=== PATIENT | male | born 1940 | race Caucasian/White ===

== ENCOUNTER 2017-12-05 10:14 | Emergency (ER) | payer OTHER, MEDICARE, BC ==
[~2017-12-05] VITALS: Ht 170.2 cm; Wt 138.0 kg
[~2017-12-05 10:14] MED LIST: ALLO300 PO; ASPI325T PO; B COTAB3 PO; CIAL20TA PO; D32000CA PO; HYDR-3533 PO; HYZA100T6 PO; LANTUSP SQ; LIPI40TA PO; MEDR4PAK3 PO; NOVOLOGP2 SQ; PROT40TA PO; SYNT88TA PO; TOPR100T15 PO; ULTR50TA PO
[2017-12-05 10:21] VITALS: BP 154/69; PULSE 86; RESP 18; TEMP 98.1; O2SAT 96
--- NOTE | 2017-12-05 10:40 | PD ---
HPI Chief Complaint: Dizziness Time Seen by Provider: 10:32 Travel History International Travel<30 days: No Contact w/Intl Traveler<30days: No Traveled to known affect area: No History of Present Illness HPI 77-year-old male came to the emergency room with history of dizziness and lightheadedness that is progressively worsening for past 2 weeks. Patient describes the dizziness as an out of body experience and says it's hard for him to describe. No history of fall or syncopal episode. He does have history of diabetes and this morning when he felt dizzy and lightheaded again he took 2 of her sugar pills. He went to see his primary care [facility] and when this was mentioned they wanted him to come to the emergency room and called ambulance. Patient says currently living here he is still little dizzy. No aggravating or relieving factors identified. Vital signs are stable. No history of chest pain. Yesterday he had some headache in the back of his head. That has gone since. PFSH Past Medical History Narrative Medical List of his past medical, surgical, social and family history is reviewed from the nursing note. Hx Anticoagulant Therapy: Yes (asa) Autoimmune Disease: No Cancer: No Cardiovascular Problems: Yes High Cholesterol: Yes Chest Pain: No Congestive Heart Failure: No Diabetes: Yes Diminished Hearing: No Endocrine: Yes GERD: Yes Gout: Yes Genitourinary: No Hepatitis: No Hiatal Hernia: No Hypertension: Yes Immune Disorder: No Kidney Stones: Yes Musculoskeletal: Yes (mild arthritis in the left hand) Neurologic: No Psychiatric: No Reproductive: No Respiratory: No Immunizations Current: Yes Renal Failure: Yes (STG 3) Thyroid Disease: No Past Surgical History Abdominal Surgery: Yes (lap cholecystectomy) AICD: No Body Medical Devices: right wrist hardware Cardiac Surgery: No Cholecystectomy: Yes Ear Surgery: No Endocrine Surgery: No Eye Surgery: No Genitourinary Surgery: No Gynecologic Surgery: No Joint Replacement: No Oral Surgery: Yes (tonsillectomy) Pacemaker: No Thoracic Surgery: No Tonsillectomy: Yes Other Surgery: Yes (r wrist) Social History Alcohol Use: Yes Tobacco Use: Yes (CIGAR COUPLE TIMES A WEEK) Substance Use: No Allergies-Medications (Allergen,Severity, Reaction): Coded Allergies: No Known Allergies (Verified Adverse Reaction, Unknown, 12/05/17) Comments No known drug allergies. Reported Meds & Prescriptions Reported Meds & Active Scripts Active Meclizine (Meclizine HCl) 25 Mg Tab 25 Mg PO TID PRN Reported Novolog Inj (Insulin Aspart) 1,000 Unit/10 Ml Vial 0 SQ DIRECTED Sliding Scale as directed. Amlodipine (Amlodipine Besylate) 2.5 Mg Tab 2.5 Mg PO DAILY Aspirin 325 Mg Tab 325 Mg PO DAILY D3 (Cholecalciferol) 2,000 Unit Tab 1 Tab PO DAILY Super B Complex (Vitamin B Complex Vit C No.4) 150 Mg Tablet 1 Tab DAILY Lantus Inj (Insulin Glargine) 1,000 Unit/10 Ml Vial 72 Units SQ HS Cialis (Tadalafil) 10 Mg Tab 10 Mg PO DAILY PRN Do not exceed 1 dose/day. Losartan (Losartan Potassium) 100 Mg Tab 100 Mg PO DAILY Metoprolol Succinate ER 24 HR (Metoprolol Succinate) 50 Mg Tab 50 Mg PO DAILY Atorvastatin (Atorvastatin Calcium) 80 Mg Tab 80 Mg PO HS Allopurinol 300 Mg Tab 300 Mg PO DAILY Levothyroxine (Levothyroxine Sodium) 88 Mcg Tab 88 Mcg PO DAILY Omeprazole 20 Mg Tab 20 Mg PO DAILY Narrative Medication List of his home medications reviewed from the nursing note. Review of Systems Except as stated in HPI: all other systems reviewed are Neg Neurologic: Positive: Dizziness Physical Exam Narrative GENERAL: Awake, alert, obese, mild distress SKIN: Focused skin assessment warm/dry. HEAD: Atraumatic. Normocephalic. EYES: Pupils equal and round. No scleral icterus. No injection or drainage. No nystagmus. ENT: No nasal bleeding or discharge. Mucous membranes pink and moist. NECK: Trachea midline. No JVD. CARDIOVASCULAR: Regular rate and rhythm. No murmur appreciated. RESPIRATORY: No accessory muscle use. Clear to auscultation. Breath sounds equal bilaterally. GASTROINTESTINAL: Abdomen soft, non-tender, nondistended. Hepatic and splenic margins not palpable. MUSCULOSKELETAL: No obvious deformities. No clubbing. No cyanosis. No edema. NEUROLOGICAL: Awake and alert. No obvious cranial nerve deficits. Motor grossly within normal limits. Normal speech. PSYCHIATRIC: Appropriate mood and affect; insight and judgment normal. Data Data Last Documented VS Vital Signs Date Time Temp Pulse Resp B/P (MAP) Pulse Ox O2 Delivery O2 Flow Rate FiO2 12/05/17 14:22 97.8 15 69 130/78 (95) 98 12/05/17 13:30 Room Air Orders Orders Electrocardiogram (12/05/17 10:40) Prothrombin Time / Inr (Pt) (12/05/17 10:40) Complete Blood Count With Diff (12/05/17 10:40) Comprehensive Metabolic Panel (12/05/17 10:40) Creatine Kinase (Cpk) (12/05/17 10:40) Troponin I (12/05/17 10:40) Urinalysis - C+S If Indicated (12/05/17 10:40) Ct Brain W/O Iv Contrast(Rout) (12/05/17 10:40) Chest, Single Ap (12/05/17 10:40) Ecg Monitoring (12/05/17 10:40) Iv Access Insert/Monitor (12/05/17 10:40) Oximetry (12/05/17 10:40) Sodium Chloride 0.9% Flush (Ns Flush) (12/05/17 10:45) Meclizine (Antivert) (12/05/17 10:45) Sodium Chlor 0.9% 1000 Ml Inj (Ns 1000 M (12/05/17 11:45) Lorazepam (Ativan) (12/05/17 12:00) Mri Brain W/O Contrast (12/05/17 ) Urine Culture (12/05/17 13:00) Ed Discharge Order (12/05/17 14:19) Labs Laboratory Tests Test 12/05/17 10:55 12/05/17 11:45 12/05/17 13:00 White Blood Count 13.8 TH/MM3 Red Blood Count 4.88 MIL/MM3 Hemoglobin 14.5 GM/DL Hematocrit 43.9 % Mean Corpuscular Volume 90.0 FL Mean Corpuscular Hemoglobin 29.7 PG Mean Corpuscular Hemoglobin Concent 33.0 % Red Cell Distribution Width 14.5 % Platelet Count 240 TH/MM3 Mean Platelet Volume 9.1 FL Neutrophils (%) (Auto) 80.9 % Lymphocytes (%) (Auto) 11.0 % Monocytes (%) (Auto) 6.6 % Eosinophils (%) (Auto) 0.6 % Basophils (%) (Auto) 0.9 % Neutrophils # (Auto) 11.2 TH/MM3 Lymphocytes # (Auto) 1.5 TH/MM3 Monocytes # (Auto) 0.9 TH/MM3 Eosinophils # (Auto) 0.1 TH/MM3 Basophils # (Auto) 0.1 TH/MM3 CBC Comment DIFF FINAL Differential Comment Blood Urea Nitrogen 26 MG/DL Creatinine 1.98 MG/DL Random Glucose 134 MG/DL Total Protein 7.2 GM/DL Albumin 2.9 GM/DL Calcium Level 8.2 MG/DL Alkaline Phosphatase 162 U/L Aspartate Amino Transf (AST/SGOT) 24 U/L Alanine Aminotransferase (ALT/SGPT) 23 U/L Total Bilirubin 1.2 MG/DL Sodium Level 139 MEQ/L Potassium Level 4.1 MEQ/L Chloride Level 106 MEQ/L Carbon Dioxide Level 24.1 MEQ/L Anion Gap 9 MEQ/L Estimat Glomerular Filtration Rate 33 ML/MIN Total Creatine Kinase 102 U/L Troponin I LESS THAN 0.02 NG/ML Prothrombin Time 11.5 SEC Prothromb Time International Ratio 1.1 RATIO Urine Color YELLOW Urine Turbidity CLEAR Urine pH 5.5 Urine Specific [place] 1.023 Urine Protein 30 mg/dL Urine Glucose (UA) NEG mg/dL Urine Ketones NEG mg/dL Urine Occult Blood NEG Urine Nitrite NEG Urine Bilirubin NEG Urine Urobilinogen 2.0 MG/DL Urine Leukocyte Esterase NEG Urine RBC LESS THAN 1 /hpf Urine WBC 1 /hpf Urine Squamous Epithelial Cells <1 /hpf Urine Bacteria RARE /hpf Urine Hyaline Casts 14 /lpf Urine Mucus FEW /lpf Microscopic Urinalysis Comment CATH-CULTURE IND MDM Medical Decision Making Medical Screen Exam Complete: Yes Emergency Medical Condition: Yes Medical Record Reviewed: Yes Interpretation(s) Twelve-lead EKG was reviewed by me. Normal sinus rhythm, right axis deviation, right bundle branch block. Heart rate of 84 bpm. Differential Diagnosis CVA, BPV, electrolyte abnormality Narrative Course 1:22 PM blood test results suggestive of some dehydration. Patient was given 1 L of IV fluid bolus. Head CT was negative. At ordered an MRI with and without contrast which is negative as well. I am waiting for the UA. If that's negative patient will be ambulated and if he does okay he'll be discharged home. He was given a dose of meclizine here. 1:58 PM I reassessed the patient and he says that since getting the fluid he is feeling better. He ambulated well as well. If the UA is negative patient will be discharged home. Procedures EKG Prior to Arrival: No Diagnosis Primary Impression: Dehydration Additional Impression: Dizziness Referrals: Primary Care Physician 3 days Additional Instructions: Please return to the ER if condition worsens or any other new concerns. He should not be driving until your symptoms of dizziness completely subsided. Take the medication as per the prescription direction. Follow-up with your primary care in couple days. Drink lots of fluid. Med/Other Pt SpecificInfo: Prescription(s) given Scripts Meclizine (Meclizine) 25 Mg Tab 25 MG PO TID Y for VERTIGO, #12 TAB 0 Refills Prov: Smiley Lin MD 12/05/17 Disposition: 01 DISCHARGE HOME Condition: Stable Smiley Lin MD Dec 05, 2017 10:40
[2017-12-05 10:42] VITALS: RESP 18; O2SAT 98
[2017-12-05] MEDS ORDERED: MECLIZINE HCL 25 MG TAB PO ONE (10:45)
[2017-12-05] MEDS ORDERED: SODIUM CHLORIDE 0.9% FLUSH 10 ML FLUSH IVF PRN (10:45)
[2017-12-05] MEDS ORDERED: LANTUS2P SQ (10:46)
[2017-12-05] MEDS ORDERED: AMLO2.5T PO (10:46)
[2017-12-05] MEDS ORDERED: NOVOLOGP2 SQ (10:46)
[2017-12-05] MEDS ORDERED: D32000TA PO (10:46)
[2017-12-05] MEDS ORDERED: OMEP20TA93 PO (10:46)
[2017-12-05] MEDS ORDERED: VITA150T (10:46)
[2017-12-05] MEDS ORDERED: ASPI-183 PO (10:46)
[2017-12-05] MEDS ORDERED: CIAL10TA PO (10:46)
[2017-12-05] MEDS ORDERED: ALLO300T2 PO (10:46)
[2017-12-05] MEDS ORDERED: LEVO88TA2 PO (10:46)
[2017-12-05] MEDS ORDERED: METO1TAB9 PO (10:46)
[2017-12-05] MEDS ORDERED: ATOR80TA45 PO (10:46)
[2017-12-05] MEDS ORDERED: LOSA100T PO (10:46)
[2017-12-05 11:09] LABS: AUTOMATED NEUTROPHIL # 11.2 TH/MM3 (1.8-7.7); BASOPHIL # 0.1 TH/MM3 (0-0.2); BASOPHIL % 0.9 % (0.0-2.0); EOSINOPHIL # 0.1 TH/MM3 (0-0.4); EOSINOPHIL % 0.6 % (0.0-4.0); HEMATOCRIT 43.9 % (39.0-51.0); HEMOGLOBIN 14.5 GM/DL (13.0-17.0); LYMPHOCYTE # 1.5 TH/MM3 (1.0-4.8); MEAN CORPUSCULAR HEMOGLOBIN 29.7 PG (27.0-34.0); MEAN PLATELET VOLUME 9.1 FL (7.0-11.0); MONO % 6.6 % (0.0-8.0); MONOCYTE # 0.9 TH/MM3 (0-0.9); NEUT % 80.9 % (16.0-70.0); PLATELET COUNT 240 TH/MM3 (150-450); RED BLOOD COUNT 4.88 MIL/MM3 (4.50-5.90); RED CELL DISTRIBUTION WIDTH 14.5 % (11.6-17.2); WHITE BLOOD COUNT 13.8 TH/MM3 (4.0-11.0)
--- NOTE | 2017-12-05 11:14 | RADRPT ---
EXAM DATE/TIME: 12/05/2017 11:00 [facility] COMPARISON: CT BRAIN W/O CONTRAST, February 16, 2011, 11:18. INDICATIONS : General weakness, dizziness. RADIATION DOSE: 36.66 CTDIvol (mGy) MEDICAL HISTORY : Cardiovascular disease. Hypertension. Stage 3 kidney disease, syncope, Diabetes SURGICAL HISTORY : None. ENCOUNTER: Initial ACUITY: 2 days PAIN SCALE: 0/10 LOCATION: cranial TECHNIQUE: Multiple contiguous axial images were obtained of the head. Using automated exposure control and adj ustment of the mA and/or kV according to patient size, radiation dose was kept as low as reasonably a chievable to obtain optimal diagnostic quality images. DICOM format image data is available electro nically for review and comparison. FINDINGS: CEREBRUM: The ventricles are normal for age. No evidence of midline shift, mass lesion, hemorrhage or acute in farction. No extra-axial fluid collections are seen. POSTERIOR FOSSA: The cerebellum and brainstem are intact. The 4th ventricle is midline. The cerebellopontine angle i s unremarkable. EXTRACRANIAL: The visualized portion of the orbits is intact. SKULL: The calvaria is intact. No evidence of skull fracture. CONCLUSION: No acute disease. Glen Isidro Jr., MD on December 05, 2017 at 11:09 Board Certified Radiologist. This report was verified electronically.
--- NOTE | 2017-12-05 11:29 | RADRPT ---
EXAM DATE/TIME: 12/05/2017 11:11 [facility] COMPARISON: CT ABDOMEN & PELVIS W/O CONTRAST, February 29, 2016, 3:42. INDICATIONS : Weakness, dizziness, short of breath and headache. MEDICAL HISTORY : Diabetes mellitus type II. Hypertension SURGICAL HISTORY : None. ENCOUNTER: Initial ACUITY: 2 weeks PAIN SCORE: 0/10 LOCATION: Bilateral chest FINDINGS: A single view of the chest demonstrates the lungs to be symmetrically aerated without evidence of mas s, infiltrate or effusion. The cardiomediastinal contours are unremarkable. Osseous structures are intact. Elevation right hemidiaphragm again noted. CONCLUSION: No acute disease. Bhupinder George MD on December 05, 2017 at 11:25 Board Certified Radiologist. This report was verified electronically.
[2017-12-05 11:30] LABS: ALBUMIN 2.9 GM/DL (3.4-5.0); ALT (GPT) 23 U/L (12-78); AST (GOT) 24 U/L (15-37); BICARBONATE 24.1 MEQ/L (21.0-32.0); BLOOD UREA NITROGEN 26 MG/DL (7-18); CALCIUM 8.2 MG/DL (8.5-10.1); CHLORIDE 106 MEQ/L (98-107); CREATININE 1.98 MG/DL (0.60-1.30); GLOMERULAR FILTRATION RATE 33 ML/MIN (>89); GLUCOSE,RANDOM 134 MG/DL (74-106); SODIUM (NA) 139 MEQ/L (136-145)
[2017-12-05 11:32] VITALS: BP 127/66; PULSE 89; RESP 18; O2SAT 98
[2017-12-05 11:33] LABS: ALKALINE PHOSPHATASE 162 U/L (45-117); TOTAL BILIRUBIN ADULT 1.2 MG/DL (0.2-1.0); TOTAL PROTEIN 7.2 GM/DL (6.4-8.2); TROPONIN I LESS THAN 0.02 NG/ML (0.02-0.05)
[2017-12-05] MEDS ORDERED: SODIUM CHLOR 0.9% 1000 ML INJ 1,000 ML IV ONE (11:45)
[2017-12-05] MEDS ORDERED: LORazepam 1 MG TAB PO ONE (12:00)
[2017-12-05 12:02] LABS: INTERNATIONAL NORMALIZED RATIO 1.1 RATIO; PROTHROMBIN TIME - PATIENT 11.5 SEC (9.8-11.6)
--- NOTE | 2017-12-05 13:07 | RADRPT ---
EXAM DATE/TIME: 12/05/2017 12:30 [facility] COMPARISON: CT BRAIN W/O CONTRAST, December 05, 2017, 11:00. INDICATIONS : Dizziness. Generalized weakness. MEDICAL HISTORY : Hypertension. Diabetes mellitus type 2. CKD SURGICAL HISTORY : Cholecystectomy. Rt wrist ORIF ENCOUNTER: Initial ACUITY: 2 day PAIN SCORE: 0/10 LOCATION: cranial TECHNIQUE: Multiplanar, multisequence MRI of the brain was performed without contrast. FINDINGS: CEREBRUM: There is mild generalized atrophy. Ventricles are normal. No evidence of midline shift, mass lesion, hemorrhage or acute infarction. No extraaxial fluid collections are seen. The pituitary gland and suprasellar cistern are normal in configuration. WHITE MATTER: There is mild periventricular and subcortical white matter signal change. POSTERIOR FOSSA: The cerebellum and brainstem are intact. The 4th ventricle is midline. The cerebellopontine angle is unremarkable. The cerebellar tonsils are normal in position. DIFFUSION IMAGING: No focal areas of restricted diffusion are seen. No evidence of acute infarction. EXTRACRANIAL: The visualized portions of the orbits and paranasal sinuses are unremarkable. CONCLUSION: 1. No acute intracranial abnormality is identified. 2. Chronic changes include mild generalized atrophy and mild chronic periventricular and subcortical white matter signal change. Iftikhar Rudd MD on December 05, 2017 at 13:01 Board Certified Radiologist. This report was verified electronically.
[2017-12-05 13:30] VITALS: BP 148/65; PULSE 89; RESP 16; TEMP 97.8; O2SAT 98
[2017-12-05 14:01] LABS: BACTERIA, URINE RARE /hpf; BILIRUBIN, URINE NEG (NEG); BLOOD, URINE NEG (NEG); GLUCOSE,URINE NEG (NEG); HYALINE CAST, URINE 14 /lpf (RARE); KETONE, URINE NEG (NEG); MUCUS URINE FEW /lpf (OCC); NITRITE,URINE NEG (NEG); PH, URINE 5.5 (5.0-8.5); SQUAMOUS EPITHELIAL CELL URINE <1 /hpf (0-5); URINE COLOR YELLOW (YELLW/STRAW); URINE LEUKOCYTE ESTERASE NEG (NEG)
[2017-12-05] MEDS ORDERED: MECL-62 PO (14:01)
[2017-12-05 14:22] VITALS: BP 130/78; TEMP 97.8
--- NOTE | 2017-12-06 00:13 | EKG ---
Date Performed: 12/05/2017 Time Performed: 10:26:48 PTAGE: 77 years EKG: Sinus rhythm RIGHT BUNDLE BRANCH BLOCK ABNORMAL ECG Since the prior tracing, there has been no significant change DOCTOR: Alcides Medel Interpretating Date/Time 12/06/2017 00:12:47
== END 2017-12-05 14:35 | disposition home or self-care (01) ==
LOC: NEPC 10:14
DX: E86.0 Dehydration (principal); R42 Dizziness and giddiness; R94.31 Abnormal electrocardiogram [ECG] [EKG]; R82.90 Unspecified abnormal findings in urine; I12.9 Hypertensive chronic kidney disease with stage 1 through stage 4 chronic kidney disease, or unspecified chronic kidney disease; E11.9 Type 2 diabetes mellitus without complications; Z79.01 Long term (current) use of anticoagulants; Z72.0 Tobacco use
CPT/HCPCS: 70450; 70551; 71045; 80053; 81001; 82550; 84484; 85025; 85610; 87086; 93005; 96360; 99285; J7030

== ENCOUNTER 2018-09-11 07:00 | Inpatient (IN) ==
[2018-09-11] MEDS ORDERED: Metoprolol Tartrate 25 MG Tablet PO ONE (08:34)
[2018-09-11] MEDS ORDERED: Chlorhexidine Gluconate 2% 1 Pack (2 Cloths) TOPICAL ONE (08:34)
[2018-09-11] MEDS ORDERED: Chlorhexidine 4% Topical 120 APPLIC/120 ML Bottle TOPICAL SCH (08:45)
[2018-09-11] MEDS ORDERED: Sodium Chlor 0.9% Inj 80 ML, Bupivacaine Liposo PF 1.3% Inj 20 ML P-ARTICULR SCH ×2 (09:00)
[2018-09-11] MEDS ORDERED: Sodium Chlor 0.9% Inj 500 ML IV.SIG SCH (09:00)
[2018-09-11] MEDS ORDERED: ceFAZolin Inj 3,000 MG in Sodium Chlor 0.9% Inj 100 ML IV.SIG SCH (09:00)
[2018-09-11] MEDS ORDERED: Propofol Inj 500 MG/50 ML Vial ONE (09:38)
[2018-09-11] MEDS ORDERED: fentaNYL Citrate Inj 100 MCG/2 ML Ampul ONE (09:38)
[2018-09-11] MEDS ORDERED: Famotidine PF Inj 20 MG/2 ML Vial ONE (09:38)
[2018-09-11] MEDS ORDERED: Ketamine Inj 50 MG/5 ML Syringe IV.PUSH ONE (09:39)
[2018-09-11] MEDS ORDERED: CEFAZOLIN IV.SIG ONE (09:52)
[2018-09-11] MEDS ORDERED: SODIUM CHLOR 0.9% IV.SIG SCH (10:00)
[2018-09-11] MEDS ORDERED: TRANEXAMIC ACID IV.SIG SCH (10:00)
[2018-09-11] MEDS ORDERED: Bisacodyl 10 MG Supp RECTAL PRN (10:03)
[2018-09-11] MEDS ORDERED: Tranexamic Acid Inj 0 MG in Sodium Chlor 0.9% Inj 100 ML IV.SIG ONE (10:03)
[2018-09-11] MEDS ORDERED: Zolpidem Tartrate 5 MG Tablet PO PRN (10:03)
[2018-09-11] MEDS ORDERED: Post-op Orders (for Pharmacy) OTHER STA (10:03)
[2018-09-11] MEDS ORDERED: Morphine Inj 4 MG/ML Vial IV.PUSH PRN (10:03)
[2018-09-11] MEDS ORDERED: Aluminum/Magnesium/Simethacone Susp 30 ML UDC PO PRN (10:03)
[2018-09-11] MEDS ORDERED: Acetaminophen 325 MG Tablet PO PRN (10:03)
--- NOTE | 2018-09-11 10:06 | P.DCO ---
- Physical Therapy Physical Therapy: Gait training Knee: Total knee, Protocol: Left, Gait training, Full weight bearing Left Lower Extremity Weight Bearing: Weight bearing as tolerated Left Lower Extremity Range of Motion: Active ROM (Active, active assisted, passive range of motion. Range of motion was 0 degrees extension to 125 degrees of flexion.) - Nursing Nursing: Dressing changes Dressing changes: Daily dressing change, Coverderm/Primapore Additional instructions: Do not remove Dermabond Prineo (the tape that is directly on the wound). Leave the Optifoam dressing in place for 7 days. After this, daily dressing changes will be done taking care to avoid injuring or removing the Dermabond Prineo. - Certification Need for Home Health services: I have seen patient Juarez Rodrigues on 09/11/18. My clinical findings support the need for the requested home health care services because: Need for Home Health Services: Deconditioned with increased weakness, Limited ability to care for self, High risk of falls Homebound Certification: I certify that my clinical findings support that this patient is homebound because: Homebound Certification: Unsteady gait/balance, Unsafe to leave home unassisted , Unable to use public transportation
[2018-09-11] MEDS ORDERED: fentaNYL Citrate Inj 250 MCG/5 ML Ampul ONE (10:41)
--- NOTE | 2018-09-11 12:44 | P.OP ---
- Preoperative Diagnosis (1) Primary osteoarthritis of left knee - Postoperative Diagnosis (1) Primary osteoarthritis of left knee Date of procedure: 09/11/18 Procedure: Right total knee arthroplasty using [employer] Triathlon prosthesis (uncemented). Anesthesia: GETA, regional (Adductor canal block), local (Exparel) Surgeon: Boaz Lowery MD Electrician Underground: EDUARDO Pineda Estimated blood loss (mL): 250 Tourniquet time (min): 0 Pathology: none sent Operation and Findings: Indications and Findings: This 77-year-old man has had long-standing arthritis in his left knee, nonresponsive to conservative measures including anti- inflammatory agents, analgesics, activity modification and ambulatory aids. He has limited ambulation tolerance to about 30-40 yards. He leans on a cart when shopping. He has pain when ascending and descending stairs. He has rest pain that awakens him. He has had intra-articular corticosteroids as well which have not helped. Physical findings showed genu varum with tenderness in the medial compartment, crepitation on range of motion and an antalgic gait. X- rays showed osteophytes, loss of articular cartilage to [id number] in the medial compartment with subchondral sclerosis. Operative findings: There is severe osteoarthritis in the medial compartment predominantly but also on the lateral and patellofemoral compartments. There is loss of articular cartilage to [id number] with osteophytes and subchondral sclerosis. The prosthesis used was a [place] Triathlon prosthesis. The femur was a size 6, uncemented, cruciate retaining. The tibial baseplate was a size 6 Tritanium with a 9 mm, X3 polyethylene, cruciate retaining spacer. The patella was a size 38 mm asymmetric Tritanium backed. The patient was brought to the clean-air operating suite after administration of a regional anesthetic by adductor canal block. A spinal anesthetic was administered. The position was supine with a small bolster under the hip on the operative side. A pneumatic tourniquet was applied to the upper thigh. The lower extremity was prepped with alcohol, Hibiclens and ChloraPrep and draped in the usual manner with the knee draped free. An appropriate timeout procedure was carried out. An incision was made from about 3 fingerbreadths above the superior medial pole of patella down the tibial tubercle on the medial side. The incision was deepened through the subcutaneous tissue to the retinacular structures which were exposed medially and laterally. A medial retinacular incision was made from the superior medial pole of patella down the tibial tubercle and up into the quadriceps tendon, splitting it longitudinally in the medial one third. The patella was reflected. The infrapatellar fat pad was debulked. The anterior cruciate ligament was excised. Medial and lateral meniscectomies were initiated. Fenestrations were made in the distal femur and proximal tibia for intramedullary referencing guides. The distal femoral cutting guide and jig were assembled for a 5, 8 mm cut. When this was fit into position,the cutting block was stabilized with pins. The jig was removed. The distal femoral cut was completed with the oscillating saw. The sizing guide was positioned in place along Whites[place] line and the epicondylar axis and stabilized with pins. The femoral size was determined as noted above. The 4-in-1 cutting block was positioned in place. Anterior and posterior cuts were made followed by posterior and anterior chamfer cuts taking care to prevent injury to ligamentous structures. Osteophytes were trimmed from the distal femur. A bone plug was placed into the fenestration of the distal femur. The proximal tibia was exposed. The medial and lateral meniscectomies were completed. The proximal tibial cutting guide was positioned in place and stabilized with a pin for rotation. The depth of cut was verified with a stylus off the high side. The cutting block was stabilized with pins. The jig was removed. The depth of cut was verified and adjusted appropriately with the use of the spacer block. The proximal tibial cut was made with the oscillating saw taking care to prevent injury to neurovascular and ligamentous structures. Proximal tibial bone was removed. Local anesthetic was administered with Exparel in the posterior capsule. The tibial baseplate trial was positioned in place. After verifying the appropriate size, the base plate trial was positioned in place along with its spacer. The femoral component was impacted into place. The alignment was checked. The tibial baseplate was pinned in place on the tibia. Attention was directed to the patella. The patella drill guide was positioned in place for the appropriate sized patella. Patellar drilling was then carried out. The trial patella was positioned in place. The knee was taken through a range of motion which was easily 0 extension to 125 degrees with gravity and 130 degrees with pressure. The patella trial was removed. The femoral drill holes were made. The femoral trials were removed. The tibial spacer was removed. A bone plug was placed into the proximal tibia. The tibial punch was impacted through the proximal tibial punch guide. This was all removed followed by placement of the tibial drill guide. The tibial drill holes were made. The guide was removed. The cut ends of bone were cleaned with pulse lavage. The tibial baseplate was impacted into place and seated appropriately. The spacer was inserted. The the femoral component was impacted into place and seated appropriately. The patella component was seated with the patellar vice and tightened appropriately. The knee was taken through a range of motion which was comparable to the previous range of motion with excellent stability in flexion and extension and appropriate patellofemoral tracking. The remainder of the Exparel was injected throughout the knee as a local anesthetic. Drains were brought out the superior lateral aspect of the suprapatellar pouch. Wound closure commenced using 0 Vicryl interrupted [id number] sutures for the capsular and fascial structures, 2-0 Vicryl interrupted simple sutures with buried knots for the subcutaneous tissues and 4-0 Monocryl, continuous subcuticular closure for the skin. The wound was dressed with Dermabond Prineo followed by a dry sterile dressing. Sterile soft roll with a cooling pad and Bhupinder bandage from the base of the toes to mid thigh were applied. Patient was transferred from the operating room to the recovery room in satisfactory condition having tolerated procedure well. Counts were correct. Specimens: None. Estimated blood loss: 250 mL
[2018-09-11] MEDS ORDERED: Tranexamic Acid Inj 1,000 MG in Sodium Chlor 0.9% Inj 100 ML IV.SIG SCH (13:00)
[2018-09-11] MEDS ORDERED: *morphine SULFATE 4 MG/ML PERIprocedure ONLY ONE ×4 (13:17→14:33)
[2018-09-11] MEDS ORDERED: *Ondansetron Inj 4 MG/2 ML Vial PERIprocedural Use ONLY ONE (13:22)
[2018-09-11] MEDS ORDERED: *Meperidine Inj 25 MG/ML Vial PERIprocedural Use ONLY ONE (13:25)
[2018-09-11] MEDS ORDERED: Ketorolac Inj 30 MG/ML (IVP) Vial IV.PUSH SCH (14:00)
--- NOTE | 2018-09-11 14:22 | XR ---
EXAM DATE: 09/11/2018 2:16 PM EST AGE/SEX: 77 years / Male INDICATIONS: Post op left knee CLINICAL DATA: This is the patient's subsequent encounter. Patient reports that signs and symptoms h ave been present for 1 day and indicates a pain score of 10/10. MEDICAL/SURGICAL HISTORY: Non-responsive. . left knee replaced COMPARISON: No prior exams available for comparison. FINDINGS: AP and lateral views of the left knee were obtained and demonstrate the patient is status post arthro plasty. The components are intact and in normal alignment. There is anterior soft tissue swelling ove rlying artifact. There are surgical drains in place. CONCLUSION: Expected postoperative changes status post arthroplasty. Electronically signed by: Armen Candelaria MD 09/11/2018 2:21 PM EST
[2018-09-11] MEDS ORDERED: Dextrose 50% in Water 50 ML Vial IV.PUSH PRN (16:12)
--- NOTE | 2018-09-11 16:17 | P.CONIM ---
History of Present Illness Primary Care Provider: Barrera Araujo MD History of Present Illness: Mr. Rodrigues is a 77-year-old male. He is status post elective left knee arthroplastic surgery. He is having pain when seen however he says the degree of pain is improved compared to his baseline pre-existing pain. At baseline he has hypertension and diabetes. His only other complaint when seen is dysuria. He says he has an urgency to urinate but has not yet urinated. This could be urinary obstruction versus urethral irritation. Review of Systems Constitutional: No fevers, no chills no night sweats, no fatigue, no weakness Eyes: No eye pain, no blurry vision, no loss of vision ENT: No sore throat, no ear pain, no rhinorrhea Cardiovascular: No chest pain, no tachycardia, no palpitations, no shortness of breath, no syncope Respiratory: No wheezing, no cough, no shortness of breath Gastrointestinal: No abdominal pain, no black tarry stools, no bright red blood per rectum, no vomiting, no diarrhea Musculoskeletal: Left knee pain, no muscle cramps, no stiffness Integumentary: No rash, no ulcers, no drainage Neurologic: No sensory loss, no loss of motor function, no dizziness Psychiatric: No behavioral changes, no hallucinations, no suicidal ideations PMFSH - History History Provided By: Patient - Medical History Medical History: Medical History (Last Reviewed 09/11/18 @ 14:12 by Bhakti Garzon PT) Arthritis Diabetes Gout Hernia, hiatal Hx of renal calculi Hypertension Left knee pain Stage III chronic kidney disease Wears hearing aid in both ears - Surgical History Surgical History: Surgical History (Last Reviewed 09/11/18 @ 14:12 by Bhakti Garzon PT) History of open reduction and internal fixation (ORIF) procedure Hx of bilateral cataract extraction Hx of cholecystectomy Hx of tonsillectomy - Family History Family History: Family History (Last Updated 09/11/18 @ 16:13 by Ozzy Gomez MD) Other Osteoarthritis - Tobacco History Second Hand Smoke Exposure: No Tobacco Use In Past 30 Days: No Smoking Status: Former smoker - Alcohol History How Often Do You Have a Drink Containing Alcohol: 2 to 4 times a month - Substance Use History Substance History: No History of Abuse - Travel History Recent Travel in the [place] Within the Last 8 Weeks: No Recent Travel Out of the Country Within the Last 8 Weeks: No Medications and Allergies Active Medications: Active Medications Acetaminophen (Tylenol) 650 mg PO Q6H PRN PRN Reason: Pain Less Than 3 On Scale Hydrocodone Bitart/Acetaminophen ([place] 7.5/325) 1 tab PO Q4H PRN PRN Reason: PAIN SCALE 4 TO 6 MODERATE Hydrocodone Bitart/Acetaminophen ([place] 7.5/325) 2 tab PO Q6H PRN PRN Reason: PAIN SCALE 7 TO 10 SEVERE Last Admin: 09/11/18 15:47 Dose: 2 tab Al Hydrox/Mg Hydrox/Simethicone (Mag-Al Plus Susp Liq) 30 ml PO Q6H PRN PRN Reason: INDIGESTION Al Hydroxide/Mg Hydroxide (Milk Of Magnesia Liq) 30 ml PO BID PRN PRN Reason: Mild Constipation Allopurinol (Zyloprim) 300 mg PO DAILY [facility] Amlodipine Besylate (Norvasc) 2.5 mg PO DAILY [facility] Aspirin (Aspirin) 325 mg PO DAILY [facility] Atorvastatin Calcium (Lipitor) 80 mg PO DAILY [facility] Bisacodyl (Dulcolax Supp) 10 mg RECTAL DAILY PRN PRN Reason: SEVERE CONSITIPATION Chlorhexidine Gluconate (Hibiclens 4% Topical) 1 applicatio TOPICAL ONCE [facility] Stop: 09/15/18 08:44 Last Admin: 09/11/18 08:45 Dose: 1 applicatio Sodium Chloride 80 ml/ (Bupivacaine Liposome 20 ml) 0 ml P-ARTICULR ONCE [facility] Last Admin: 09/11/18 10:43 Dose: 1.3 bag Diphenhydramine HCl (Benadryl) 25 mg PO Q6H PRN PRN Reason: ITCHING Cefazolin Sodium 3,000 mg/ (Sodium Chloride) 130 mls @ 200 mls/hr IV.SIG PRICER [facility] Stop: 09/15/18 08:59 Last Admin: 09/11/18 10:57 Dose: Not Given Cefazolin Sodium/Dextrose (Ancef 1 Gm Premix Inj) 1 gm in 50 mls @ 100 mls/hr IV.SIG Q6H [facility] Stop: 09/12/18 04:29 Lactated Ringer's (Lr 1000 Ml Inj) 1,000 mls @ 80 mls/hr IV.CONT .[id number] [facility] Last Infusion: 09/11/18 11:15 Dose: Infused Tranexamic Acid / Sodium (Chloride) 100 mls @ 200 mls/hr IV.SIG ONCE ONE Stop: 09/11/18 10:32 Insulin Aspart (Novolog Insulin Correctional Sugar Inj) 24 unit SQ QAM [facility] Insulin Aspart (Novolog Inj) 18 units SQ AC [facility] Insulin Detemir (Levemir Inj) 64 unit SQ HS [facility] Lactulose (Lactulose Liq) 30 ml PO DAILY PRN PRN Reason: SEVERE CONSITIPATION Levothyroxine Sodium (Synthroid) 88 mcg PO DAILY@0600 [facility] Losartan Potassium (Cozaar) 100 mg PO DAILY [facility] Metoprolol Tartrate (Lopressor) 50 mg PO BID [facility] Miscellaneous Information ([facility] [place] Nursing Information) 0 each OTHER UNSCH PRN PRN Reason: SEE LABEL COMMENTS Stop: 09/12/18 13:06 Morphine Sulfate (Morphine Inj) 2 mg IV.PUSH Q3H PRN PRN Reason: BREAKTHROUGH PAIN Ondansetron HCl (Zofran Odt) 4 mg PO Q6H PRN PRN Reason: NAUSEA OR VOMITING Pantoprazole Sodium (Protonix) 20 mg PO DAILY [facility] Senna/Docusate Sodium (Radha-Colace) 1 tab PO BID [facility] Sennosides (Senokot) 17.2 mg PO BID PRN PRN Reason: Moderate Constipation Sodium Chloride (Ns Flush) 2 ml IV.FLUSH BID [facility] Sodium Chloride (Ns Flush) 2 ml IV.FLUSH PRN PRN PRN Reason: FLUSH AFTER USING IV ACCESS Vitamin B Complex/Vitamin C (Allbee C) 1 tab PO DAILY [facility] Vitamin D (Vitamin D3) 2,000 unit PO DAILY [facility] Zolpidem Tartrate (Ambien) 5 mg PO HS PRN PRN Reason: INSOMNIA Allergies Allergy/AdvReac Type Severity Reaction Status Date / Time No Known Allergies Allergy Unverified 09/11/18 08:24 Home Medications Medication Instructions Recorded Confirmed Type allopurinol 300 mg PO DAILY 08/30/18 09/11/18 History amlodipine 2.5 mg PO DAILY 08/30/18 09/11/18 History aspirin 325 mg PO DAILY 08/30/18 09/11/18 History atorvastatin 80 mg PO DAILY 08/30/18 09/11/18 History cholecalciferol (vitamin D3) 2,000 unit PO DAILY 08/30/18 09/11/18 History [Vitamin D3] insulin aspart U-100 [Novolog 18 unit SUBCUT AC 08/30/18 09/11/18 History U-100 Insulin aspart] insulin aspart U-100 [Novolog 24 unit SUBCUT QAM 08/30/18 09/11/18 History U-100 Insulin aspart] insulin glargine [Lantus U-100 68 unit SUBCUT HS 08/30/18 09/11/18 History Insulin] levothyroxine 88 mcg PO DAILY 08/30/18 09/11/18 History losartan 100 mg PO DAILY 08/30/18 09/11/18 History metoprolol tartrate 50 mg PO BID 08/30/18 09/11/18 History omeprazole 20 mg PO DAILY 08/30/18 09/11/18 History vitamin B complex [Super B-50 1 cap PO DAILY 08/30/18 09/11/18 History Complex] Exam Vital signs: Vital Signs 09/11/18 08:30 09/11/18 08:40 09/11/18 09:10 Temperature 98.3 F Pulse Rate 76 69 Respiratory Rate Blood Pressure 170/76 H Pulse Oximetry 100 100 09/11/18 13:05 09/11/18 13:15 09/11/18 13:30 Temperature 98.5 F Pulse Rate 82 82 79 Respiratory Rate 14 16 15 Blood Pressure 117/62 117/59 L 152/65 H Pulse Oximetry 100 100 100 09/11/18 13:45 09/11/18 14:00 09/11/18 14:30 Temperature Pulse Rate 78 79 83 Respiratory Rate 16 16 15 Blood Pressure 158/70 H 157/70 H 144/65 H Pulse Oximetry 97 97 100 09/11/18 15:00 Temperature 97.8 F Pulse Rate 81 Respiratory Rate 15 Blood Pressure 164/76 H Pulse Oximetry 100 Intake & Output 09/10/18 09/11/18 09/11/18 18:59 06:59 18:59 Intake Total 2062.93 / 2062.93 Output Total 250 / 250 Balance 1812.93 / 1812.93 Weight 129.3 kg Intake: IV 1262.93 / 1262.93 LR 1000 mL Inj 1,000 ML @ 80 1000 / 1000 mls/hr IV.CONT .[id number] [facility] Rx# :[id number] Cyklokapron Inj 1,293 MG In NS 112.93 / 112.93 Inj 100 ML @ 200 mls/hr IV.SIG ONCE [facility] Rx#:[id number] Ancef 1 GM Premix Inj 3 gm In 150 / 150 150 ml @ 0 mls/hr IV.SIG .STK- [facility] Rx#:[id number] Anesthesia Amount 800 / 800 Output: Estimated Blood Loss 250 / 250 Other: Weight On Admission 129.3 kg Narrative: GENERAL: NAD, A&Ox3 HEAD: Normocephalic. NECK: Supple, trachea midline. No lymphadenopathy. EYES: No scleral icterus. No injection or drainage. CARDIOVASCULAR: Regular rate and rhythm without murmurs, gallops, or rubs. RESPIRATORY: Breath sounds equal bilaterally. No accessory muscle use. GASTROINTESTINAL: Abdomen soft, non-tender, nondistended. MUSCULOSKELETAL: No cyanosis, or edema. Left knee bandaged SKIN: Warm and dry. NEURO: No focal neurological deficits. Results - Labs Labs: Laboratory Results - last 24 hr 09/11/18 09/11/18 09/11/18 08:24 08:28 13:09 POC Glucose 115 H 97 Blood Type A Positive Antibody Screen Negative - Imaging Impressions Knee X-Ray 09/11/18 10:01 CONCLUSION: Expected postoperative changes status post arthroplasty. Assessment and Plan - Plan 77-year-old male admitted secondary to elective left knee surgery Dysuria Possible urinary obstruction Continue to try to urinate Bladder scan if patient unable to urinate May need to Place Ng catheter if volume is greater than 500 mL Status post left knee arthroplastic surgery Osteoarthritis Orth O following Continue pain treatments as needed Physical therapy Follow H&H Diabetes mellitus type 2 Follow blood sugars Insulin sliding scale Diabetic diet Gout Continue allopurinol Chronic kidney disease stage III Follow renal function Avoid nephrotoxins Hypertension Continue baseline treatment Follow blood pressures Adjust treatments as needed Hiatal hernia History of renal calculi Presbycusis Follow these conditions clinically DVT prophylaxis Per discretion of surgeon
[2018-09-11] MEDS ORDERED: Insulin NovoLOG Aspart Correctional Sugar Inj SQ SCH (17:00)
[2018-09-11] MEDS: Insulin NovoLOG Aspart Correctional Sugar Inj SQ SCH ×2 (18:52→20:38)
[2018-09-11] MEDS: ceFAZolin 1 GM Premix Inj 1 GM/50 ML FROZ.PIGGY IV.SIG SCH ×2 (19:30→21:38)
[2018-09-11] MEDS: Metoprolol Tartrate 50 MG Tablet PO SCH (20:38)
[2018-09-11] MEDS: Senna/Docusate Sodium 8.6/50 MG Tablet PO SCH (20:39)
[2018-09-11] MEDS ORDERED: Insulin Detemir Inj 1,000 UNIT/10 ML Vial SQ SCH (21:00)
[2018-09-11] MEDS: Insulin Detemir Inj 1,000 UNIT/10 ML Vial SQ SCH (21:39)
[2018-09-12] MEDS: ceFAZolin 1 GM Premix Inj 1 GM/50 ML FROZ.PIGGY IV.SIG SCH (03:43)
[2018-09-12] MEDS ORDERED: Glycopyrrolate Inj 1 MG/5 ML Syringe IV.PUSH ONE (04:57)
[2018-09-12] MEDS ORDERED: Neostigmine Inj 5 MG/5 ML Syringe IV.PUSH ONE (04:57)
[2018-09-12] MEDS ORDERED: Phenylephrine/NS 1000 MCG/10ML Syringe IV.PUSH ONE (04:57)
[2018-09-12] MEDS ORDERED: Lidocaine PF 1% Inj 5 ML Syringe OTHER ONE (04:57)
[2018-09-12] MEDS: Levothyroxine 88 MCG Tablet PO SCH (05:14)
[2018-09-12 06:00] LABS: Baso % (Auto) 0.3 % (0.0-2.0); Eos # (Auto) 0.1 th/mm3 (0.0-0.4); Eos % (Auto) 0.7 % (0.0-4.0); Hemoglobin 12.2 gm/dL (13.0-17.0); Lymph # (Auto) 1.3 th/mm3 (1.0-4.8); Lymph % (Auto) 11.1 % (9.0-44.0); Mean Corpuscular HGB Conc 33.1 % (32.0-36.0); Mean Corpuscular Volume 90.7 fL (80.0-100.0); Mono # (Auto) 0.9 th/mm3 (0.0-0.9); Mono % (Auto) 8.1 % (0.0-8.0); Neut # (Auto) 9.3 th/mm3 (1.8-7.7); Neut % (Auto) 79.8 % (16.0-70.0); Platelet Count 199 th/mm3 (150-450); Red Blood Count 4.08 mil/mm3 (4.50-5.90); Red Cell Distribution Width 14.3 % (11.6-17.2); White Blood Count 11.6 th/mm3 (4.0-11.0)
[2018-09-12 06:14] LABS: Albumin 2.8 g/dL (3.4-5.0); Anion Gap 7 meq/L (5-15); Aspartate Aminotransferase 20 U/L (15-37); Blood Urea Nitrogen 21 mg/dL (7-18); Calcium 7.9 mg/dL (8.5-10.1); Carbon Dioxide 29.4 meq/L (21.0-32.0); Chloride 105 meq/L (98-107); Glomerular Filtration Rate 30 mL/min (>89); Glucose,Random 80 mg/dL (74-106); Potassium 4.6 meq/L (3.5-5.1); Sodium 141 meq/L (136-145)
[2018-09-12 06:15] LABS: Alanine Aminotransferase 25 U/L (12-78)
[2018-09-12 06:17] LABS: Alkaline Phosphatase 186 U/L (45-117); Total Protein 6.5 g/dL (6.4-8.2)
--- NOTE | 2018-09-12 07:13 | P.PNOP ---
Subjective Interval history: Postop day #1 The patient complains of pain in his knee. He indicates that the medication that he is currently getting is not quite adequate. Physical therapy reports that the ambulation distance was 3 feet due to weakness "from adductor block". The range of motion was not recorded by the physical therapist. Physical Exam Vital signs: Vital Signs 09/11/18 08:30 09/11/18 08:40 09/11/18 09:10 Temperature 98.3 F Pulse Rate 76 69 Respiratory Rate Blood Pressure 170/76 H Pulse Oximetry 100 100 09/11/18 13:05 09/11/18 13:15 09/11/18 13:30 Temperature 98.5 F Pulse Rate 82 82 79 Respiratory Rate 14 16 15 Blood Pressure 117/62 117/59 L 152/65 H Pulse Oximetry 100 100 100 09/11/18 13:45 09/11/18 14:00 09/11/18 14:30 Temperature Pulse Rate 78 79 83 Respiratory Rate 16 16 15 Blood Pressure 158/70 H 157/70 H 144/65 H Pulse Oximetry 97 97 100 09/11/18 15:00 09/11/18 16:00 09/11/18 20:00 Temperature 97.8 F 97.7 F 97.4 F L Pulse Rate 81 79 80 Respiratory Rate 15 18 18 Blood Pressure 164/76 H 151/65 H 165/72 H Pulse Oximetry 100 100 99 09/11/18 22:16 09/12/18 00:00 09/12/18 04:00 Temperature 97.6 F 98.2 F Pulse Rate 80 77 Respiratory Rate 18 18 18 Blood Pressure 175/72 H 150/71 H Pulse Oximetry 97 97 09/12/18 04:14 Temperature Pulse Rate Respiratory Rate 18 Blood Pressure Pulse Oximetry Intake & Output 09/11/18 09/12/18 09/12/18 18:59 06:59 18:59 Intake Total 2542.93 / 2542.93 390 / 390 Output Total 250 / 250 265 / 265 Balance 2292.93 / 2292.93 125 / 125 Weight 129.3 kg 132.5 kg Intake: IV 1262.93 / 1262.93 150 / 150 LR 1000 mL Inj 1,000 ML @ 80 1000 / 1000 mls/hr IV.CONT .[id number] [facility] Rx# :[id number] Cyklokapron Inj 1,293 MG In NS 112.93 / 112.93 Inj 100 ML @ 200 mls/hr IV.SIG ONCE [facility] Rx#:[id number] Ancef 1 GM Premix Inj 1 gm In 150 / 150 150 / 150 50 ml @ 100 mls/hr IV.SIG Q6H [facility] Rx#:[id number] Oral 480 / 480 240 / 240 Anesthesia Amount 800 / 800 Output: Urine 125 / 125 Estimated Blood Loss 250 / 250 Wound Drainage 140 / 140 # 1 Left Lateral Knee Hemovac 140 / 140 Other: Weight On Admission 129.3 kg Narrative: He is resting, relatively comfortably, supine in bed. The dressing is dry and intact. His neurovascular status is intact. Results - Labs CBC & Chem 7: 09/12/18 04:30 09/12/18 04:30 Laboratory Results - last 24 hr 09/11/18 09/11/18 09/11/18 08:24 08:28 13:09 WBC RBC Hgb Hct MCV MCH MCHC RDW Plt Count MPV Neut % (Auto) Lymph % (Auto) [place] % (Auto) Eos % (Auto) Baso % (Auto) Neut # (Auto) Lymph # (Auto) [place] # (Auto) Eos # (Auto) Baso # (Auto) WBC Differential Differential Comment Sodium Potassium Chloride Carbon Dioxide Anion Gap BUN Creatinine Estimated GFR POC Glucose 115 H 97 Random Glucose Calcium Total Bilirubin AST ALT Alkaline Phosphatase Total Protein Albumin Blood Type A Positive Antibody Screen Negative 09/11/18 09/12/18 09/12/18 20:33 02:34 04:30 WBC 11.6 H RBC 4.08 L Hgb 12.2 L Hct 37.0 L MCV 90.7 MCH 30.0 MCHC 33.1 RDW 14.3 Plt Count 199 MPV 9.0 Neut % (Auto) 79.8 H Lymph % (Auto) 11.1 [place] % (Auto) 8.1 H Eos % (Auto) 0.7 Baso % (Auto) 0.3 Neut # (Auto) 9.3 H Lymph # (Auto) 1.3 [place] # (Auto) 0.9 Eos # (Auto) 0.1 Baso # (Auto) 0.0 WBC Differential . Differential Comment Auto diff final Sodium Potassium Chloride Carbon Dioxide Anion Gap BUN Creatinine Estimated GFR POC Glucose 140 H 84 Random Glucose Calcium Total Bilirubin AST ALT Alkaline Phosphatase Total Protein Albumin Blood Type Antibody Screen 09/12/18 04:30 WBC RBC Hgb Hct MCV MCH MCHC RDW Plt Count MPV Neut % (Auto) Lymph % (Auto) [place] % (Auto) Eos % (Auto) Baso % (Auto) Neut # (Auto) Lymph # (Auto) [place] # (Auto) Eos # (Auto) Baso # (Auto) WBC Differential Differential Comment Sodium 141 Potassium 4.6 Chloride 105 Carbon Dioxide 29.4 Anion Gap 7 BUN 21 H Creatinine 2.18 H Estimated GFR 30 L POC Glucose Random Glucose 80 Calcium 7.9 L Total Bilirubin 0.6 AST 20 ALT 25 Alkaline Phosphatase 186 H Total Protein 6.5 Albumin 2.8 L Blood Type Antibody Screen - Imaging Impressions Knee X-Ray 09/11/18 10:01 CONCLUSION: Expected postoperative changes status post arthroplasty. - Procedures Left total knee arthroplasty using Denise Triathlon prosthesis (uncemented) on 09/11/2018. Assessment and Plan - Ortho Post Op Day # 1 - Problem List (1) Status post total left knee replacement not using cement Code(s): Z96.652 - Presence of left artificial knee joint Status: Acute Plan: Continue postop care and PT. I have explained the operative findings and procedure to him. I have explained to him the importance of working on terminal extension as well as flexion. I have explained that he needs to put his heel down first as he walks to encourage extension as he walks. - Assessment and Plan Condition: Good. Orthopedically stable. DVT prophylaxis: TEDs, aspirin, sequentials. Discharge plans: Home with home health care. An appointment was scheduled through the office. Prescriptions: [place] 10; Patient is having significant pain caused by a total knee arthroplasty which will last more than 3 days. Trial of Tylenol has not helped. I believe that it is medically necessary to treat patients pain because it is affecting patients ability to participate in postoperative rehabilitation and perform activities of daily living in a comfortable and efficient manner.
--- NOTE | 2018-09-12 07:45 | P.DS ---
Date of admission: 09/11/18 07:49 Primary care physician: Barrera Araujo MD Attending physician on discharge: Boaz Lowery Anticipated date of discharge: 09/12/18 Brief History from admission: This 77-year-old man has had long-standing arthritis in his left knee, nonresponsive to conservative measures including anti-inflammatory agents, analgesics, ambulatory aids and exercise. This interferes with his activities of daily living making it difficult for him to walk, he has pain standing from a seated position and ascending and descending stairs. He also has rest pain that awakens him at night. Physical findings showed medial laxity with tenderness in the medial compartment and crepitation on range of motion. He had an antalgic gait. Radiographic findings showed loss of articular cartilage to [id number] in the medial compartment with subchondral sclerosis and tricompartmental osteophytes. DS: Diagnosis - Discharge Diagnosis (1) Primary osteoarthritis of left knee Status: Chronic Diagnosis: Principal (2) Status post total left knee replacement not using cement Status: Acute Diagnosis: Principal (3) Obesity, Class III, BMI 40-49.9 (morbid obesity) Status: Acute Diagnosis: Secondary (4) Diabetes mellitus Status: Acute Diagnosis: Secondary DS: Medications - Discharge Medications Prescriptions: oxycodone-acetaminophen 1 tab PO Q4H PRN 7 Days #42 tab PRN Reason: Pain Scale 7 To 10 Severe DS: Summary Hospital Course: The patient was admitted as noted above. The above noted operative procedure was carried out that day. Preoperatively prophylactic antibiotics were administered Ancef according to protocol. These were continued postoperatively. The patient also received tranexamic acid to help with hemostasis according to protocol. In the postanesthesia care unit mechanical methods of DVT prophylaxis in the form of GERALDINE stockings and sequentials were initiated. Physical therapy was initiated on the day of surgery. On postoperative day #1 physical therapy continued. DVT prophylaxis with resumption of aspirin 325 mg daily was initiated at this time. The patient continued physical therapy throughout the hospitalization. The distance walked and range of motion improved throughout the hospitalization. The patient was discharged on postoperative day 3 with the disposition being to home with home health care. An appointment for follow-up was made prior to admission. - Time Spent with Patient Total time spent providing and/or coordinating discharge services: Less than 30 minutes - Quality: VTE Deep Vein Thrombosis/Pulmonary Embolism Present on Admission: No Exam Vital signs: Vital Signs 09/11/18 08:30 09/11/18 08:40 09/11/18 09:10 Temperature 98.3 F Pulse Rate 76 69 Respiratory Rate Blood Pressure 170/76 H Pulse Oximetry 100 100 09/11/18 13:05 09/11/18 13:15 09/11/18 13:30 Temperature 98.5 F Pulse Rate 82 82 79 Respiratory Rate 14 16 15 Blood Pressure 117/62 117/59 L 152/65 H Pulse Oximetry 100 100 100 09/11/18 13:45 09/11/18 14:00 09/11/18 14:30 Temperature Pulse Rate 78 79 83 Respiratory Rate 16 16 15 Blood Pressure 158/70 H 157/70 H 144/65 H Pulse Oximetry 97 97 100 09/11/18 15:00 09/11/18 16:00 09/11/18 20:00 Temperature 97.8 F 97.7 F 97.4 F L Pulse Rate 81 79 80 Respiratory Rate 15 18 18 Blood Pressure 164/76 H 151/65 H 165/72 H Pulse Oximetry 100 100 99 09/11/18 22:16 09/12/18 00:00 09/12/18 04:00 Temperature 97.6 F 98.2 F Pulse Rate 80 77 Respiratory Rate 18 18 18 Blood Pressure 175/72 H 150/71 H Pulse Oximetry 97 97 09/12/18 04:14 Temperature Pulse Rate Respiratory Rate 18 Blood Pressure Pulse Oximetry Intake & Output 09/11/18 09/12/18 09/12/18 18:59 06:59 18:59 Intake Total 2542.93 / 2542.93 390 / 390 Output Total 250 / 250 265 / 265 Balance 2292.93 / 2292.93 125 / 125 Weight 129.3 kg 132.5 kg Intake: IV 1262.93 / 1262.93 150 / 150 LR 1000 mL Inj 1,000 ML @ 80 1000 / 1000 mls/hr IV.CONT .[id number] [facility] Rx# :[id number] Cyklokapron Inj 1,293 MG In NS 112.93 / 112.93 Inj 100 ML @ 200 mls/hr IV.SIG ONCE [facility] Rx#:[id number] Ancef 1 GM Premix Inj 1 gm In 150 / 150 150 / 150 50 ml @ 100 mls/hr IV.SIG Q6H [facility] Rx#:[id number] Oral 480 / 480 240 / 240 Anesthesia Amount 800 / 800 Output: Urine 125 / 125 Estimated Blood Loss 250 / 250 Wound Drainage 140 / 140 # 1 Left Lateral Knee Hemovac 140 / 140 Other: Weight On Admission 129.3 kg Narrative: He is resting, relatively comfortably, supine in bed. The dressing is dry and intact. His neurovascular status is intact. Results Procedures completed during hospitalization: Left total knee arthroplasty using [place] Triathlon prosthesis (uncemented) on 09/11/2018. Labs on day of discharge: Labs from last 24 hours 09/12/18 09/12/18 09/12/18 04:30 04:30 02:34 WBC 11.6 H RBC 4.08 L Hgb 12.2 L Hct 37.0 L MCV 90.7 MCH 30.0 MCHC 33.1 RDW 14.3 Plt Count 199 MPV 9.0 Neut % (Auto) 79.8 H Lymph % (Auto) 11.1 [place] % (Auto) 8.1 H Eos % (Auto) 0.7 Baso % (Auto) 0.3 Neut # (Auto) 9.3 H Lymph # (Auto) 1.3 [place] # (Auto) 0.9 Eos # (Auto) 0.1 Baso # (Auto) 0.0 WBC Differential . Differential Comment Auto diff final Sodium 141 Potassium 4.6 Chloride 105 Carbon Dioxide 29.4 Anion Gap 7 BUN 21 H Creatinine 2.18 H Estimated GFR 30 L POC Glucose 84 Random Glucose 80 Calcium 7.9 L Total Bilirubin 0.6 AST 20 ALT 25 Alkaline Phosphatase 186 H Total Protein 6.5 Albumin 2.8 L Blood Type Antibody Screen 09/11/18 09/11/18 09/11/18 20:33 13:09 08:28 WBC RBC Hgb Hct MCV MCH MCHC RDW Plt Count MPV Neut % (Auto) Lymph % (Auto) [place] % (Auto) Eos % (Auto) Baso % (Auto) Neut # (Auto) Lymph # (Auto) [place] # (Auto) Eos # (Auto) Baso # (Auto) WBC Differential Differential Comment Sodium Potassium Chloride Carbon Dioxide Anion Gap BUN Creatinine Estimated GFR POC Glucose 140 H 97 Random Glucose Calcium Total Bilirubin AST ALT Alkaline Phosphatase Total Protein Albumin Blood Type A Positive Antibody Screen Negative 09/11/18 08:24 WBC RBC Hgb Hct MCV MCH MCHC RDW Plt Count MPV Neut % (Auto) Lymph % (Auto) [place] % (Auto) Eos % (Auto) Baso % (Auto) Neut # (Auto) Lymph # (Auto) [place] # (Auto) Eos # (Auto) Baso # (Auto) WBC Differential Differential Comment Sodium Potassium Chloride Carbon Dioxide Anion Gap BUN Creatinine Estimated GFR POC Glucose 115 H Random Glucose Calcium Total Bilirubin AST ALT Alkaline Phosphatase Total Protein Albumin Blood Type Antibody Screen - Impressions ITS Impressions Knee X-Ray 09/11/18 10:01 CONCLUSION: Expected postoperative changes status post arthroplasty. Discharge Plan - Discharge Disposition Patient Disposition: /Home Health Service - Discharge Condition Condition: Stable - Discharge Order Discharge Orders: Discharge Order (Routine); Ordered 09/14/18 Ordered By: Boaz Lowery - Discharge Details Anticipated Discharge Date: 09/14/18 - Physicians Team Primary Care Provider: Barrera Araujo Attending Provider: Boaz Lowery Other Providers: Ozzy Gomez MD ; [facility], ; [facility] - Rxs /Orders / Referrals /Forms Prescriptions: New oxycodone-acetaminophen 7.5-325 mg Tablet 1 tab PO Q4H PRN (Reason: Pain Scale 7 To 10 Severe) 7 Days Qty: 42 RF: 0 Continue allopurinol 300 mg Tablet 300 mg PO DAILY amlodipine 2.5 mg Tablet 2.5 mg PO DAILY aspirin 325 mg Tablet 325 mg PO DAILY atorvastatin 80 mg Tablet 80 mg PO DAILY cholecalciferol (vitamin D3) [Vitamin D3] 2,000 unit Capsule 2,000 unit PO DAILY insulin aspart U-100 [Novolog U-100 Insulin aspart] 100 unit/mL Solution 18 unit subcut AC insulin aspart U-100 [Novolog U-100 Insulin aspart] 100 unit/mL Solution 24 unit SUBCUT QAM insulin glargine [Lantus U-100 Insulin] 100 unit/mL Solution 68 unit SUBCUT HS levothyroxine 88 mcg Capsule 88 mcg PO DAILY losartan 100 mg Tablet 100 mg PO DAILY metoprolol tartrate 50 mg Tablet 50 mg PO BID omeprazole 20 mg Capsule,Delayed Release(Dr/Ec) 20 mg PO DAILY vitamin B complex [Super B-50 Complex] Capsule 1 cap PO DAILY Referrals: Boaz Lowery MD [Physician] - See Instructions Barrera Araujo MD [Primary Care Provider] - See Instructions - Discharge Instructions Patient Printed Instructions: Oxycodone/Acetaminophen (By mouth), How to Use an Incentive Spirometer (DC), How to Choose and Use a Walker (GEN), GERALDINE Hose (DC ), Knee Replacement (DC) - Post Discharge Care Plan Care Plan Goals: Discharge Care Plan Goals for Total Knee Replacement You have undergone knee replacement surgery. Your doctor replaced your painful joint with an artificial joint to relieve pain and restore movement. Here are some goals to help you heal well. Directions to Meet your Goals: 1. Activity & Exercises: * Take pain medicine as directed by your doctor. * Sit in chairs with arms. The arms make it easier for you to stand up or sit down. * Dont sit for more than 30 to 45 minutes at one time. * Nap if you are tired, but dont stay in bed all day. * Sleep with a pillow under your ankle, not your knee. Be sure to change the position of your leg during the night. * Wear the support stockings you were given in the hospital as directed by your surgeon. 2. Prevent Falls/Injury: The elias to successful recovery is movement with walking and exercising your knee as directed by your doctor. * Arrange your household to keep the items you need handy. Keep everything else out of the way. * Remove items that may cause you to fall, such as throw rugs and electrical cords. * Use nonslip bath mats, grab bars, an elevated toilet seat, and a shower chair in your bathroom * Sit on a shower stool or chair when you shower to keep from falling. * Until your balance, flexibility, and strength improve, use a cane, crutches, a walker, handrails, or someone to help you. * Keep your hands free by using a backpack, perez pack, apron, or pockets to carry things * Walk up and down stairs with support. Try one step at a time. Use the railing if possible. * Dont drive until your doctor says its OK. * Dont drive while you are taking opioid pain medicine. 3. Precautions: * Prevent infection. Any infection will need to be treated immediately. Call your doctor right away if you think you might have an infection. * Tell your dentist that you have an artificial joint and take antibiotics as prescribed before any dental work. * Tell all your healthcare providers about your artificial joint before any medical procedure. * Maintain a healthy weight. Get help to lose any extra pounds. Added body weight puts stress on the knee. * Your medications may include blood-thinning medicine to prevent blood clots or antibiotics to prevent infection-prevent any falls or cuts 4. Incision Care: * Prevent infection by washing your hands often. If an infection occurs, it will need to be treated right away. * Call your doctor right away if you think you may have an infection. Symptoms include a fever or an incision that leaks white, green, or yellow fluid. * Don't soak your incision in water until your doctor says its OK. This means no hot tubs, bathtubs, or swimming pools. * Follow your doctor's instructions for changing the dressing. * Dont rub the incision, or apply creams or lotions to it. * If you notice any redness or drainage around the bandage site, contact your surgeon's office immediately. 5. Follow-Up: Do Not miss your follow-up appointment. Keep up with all your appointments and yearly check ups When to call your doctor: Call your doctor right away if you have: Fever of 100.4F (38C) or higher, or as directed by your doctor Shaking chills Stiffness, or inability to move the knee Increased swelling in your leg Increased redness, tenderness, or swelling in or around the knee incision Drainage from the knee incision Increased knee pain Call 911: Call 911 right away if you have: Chest pain Shortness of breath Any pain or tenderness in your calf
[2018-09-12] MEDS: Aspirin 325 MG Tablet PO SCH (08:28)
[2018-09-12] MEDS: amLODIPine 5 MG Tablet PO SCH (08:28)
[2018-09-12] MEDS: Metoprolol Tartrate 50 MG Tablet PO SCH ×2 (08:28→20:35)
[2018-09-12] MEDS: Allopurinol 300 MG Tablet PO SCH (08:29)
[2018-09-12] MEDS: Pantoprazole Sodium 20 MG DR Tablet PO SCH (08:29)
[2018-09-12] MEDS: Senna/Docusate Sodium 8.6/50 MG Tablet PO SCH ×2 (08:29→20:36)
[2018-09-12] MEDS: Insulin NovoLOG Aspart Correctional Sugar Inj SQ SCH ×4 (08:36→21:00)
--- NOTE | 2018-09-12 08:44 | P.PN ---
Subjective Interval history: Follow up on patient s/p elective left TKR. Patient seen and examined. Patient complaining of postoperative left knee pain. He is asking for more pain medication. He reports sensation of incomplete bladder emptying, slow stream and small void volumes. He denies any dysuria. He denies any fever or chills. He denies any chest pain or dyspnea. He denies any N/V or abdominal pain. Physical Exam Vital signs: Vital Signs 09/11/18 09:10 09/11/18 13:05 09/11/18 13:15 Temperature 98.5 F Pulse Rate 69 82 82 Respiratory Rate 14 16 Blood Pressure 117/62 117/59 L Pulse Oximetry 100 100 100 09/11/18 13:30 09/11/18 13:45 09/11/18 14:00 Temperature Pulse Rate 79 78 79 Respiratory Rate 15 16 16 Blood Pressure 152/65 H 158/70 H 157/70 H Pulse Oximetry 100 97 97 09/11/18 14:30 09/11/18 15:00 09/11/18 16:00 Temperature 97.8 F 97.7 F Pulse Rate 83 81 79 Respiratory Rate 15 15 18 Blood Pressure 144/65 H 164/76 H 151/65 H Pulse Oximetry 100 100 100 09/11/18 20:00 09/11/18 22:16 09/12/18 00:00 Temperature 97.4 F L 97.6 F Pulse Rate 80 80 Respiratory Rate 18 18 18 Blood Pressure 165/72 H 175/72 H Pulse Oximetry 99 97 09/12/18 04:00 09/12/18 04:14 Temperature 98.2 F Pulse Rate 77 Respiratory Rate 18 18 Blood Pressure 150/71 H Pulse Oximetry 97 Intake & Output 09/11/18 09/12/18 09/12/18 18:59 06:59 18:59 Intake Total 2542.93 / 2542.93 390 / 390 Output Total 250 / 250 265 / 265 Balance 2292.93 / 2292.93 125 / 125 Weight 129.3 kg 132.5 kg Intake: IV 1262.93 / 1262.93 150 / 150 LR 1000 mL Inj 1,000 ML @ 80 1000 / 1000 mls/hr IV.CONT .[id number] [facility] Rx# :[id number] Cyklokapron Inj 1,293 MG In NS 112.93 / 112.93 Inj 100 ML @ 200 mls/hr IV.SIG ONCE [facility] Rx#:[id number] Ancef 1 GM Premix Inj 1 gm In 150 / 150 150 / 150 50 ml @ 100 mls/hr IV.SIG Q6H [facility] Rx#:[id number] Oral 480 / 480 240 / 240 Anesthesia Amount 800 / 800 Output: Urine 125 / 125 Estimated Blood Loss 250 / 250 Wound Drainage 140 / 140 # 1 Left Lateral Knee Hemovac 140 / 140 Other: Weight On Admission 129.3 kg Narrative: GENERAL: WDWN overweight male patient, INAD. Awake and alert. SKIN: Warm and dry. HEENT: Atraumatic. Normocephalic. Pupils equal and round. No scleral icterus. No injection or drainage. No nasal bleeding or discharge. Mucous membranes pink and moist. NECK: Trachea midline. CARDIOVASCULAR: Regular rate and rhythm. RESPIRATORY: No accessory muscle use. Clear to auscultation. Breath sounds equal bilaterally. GASTROINTESTINAL: Abdomen soft, nondistended. +discomfort to palpation over suprapubic area. Hypoactive BS. MUSCULOSKELETAL: Extremities without clubbing, cyanosis, or edema. s/p Left TKR , postop dressing in place, C/D/I. NV LLE distally. NEUROLOGICAL: Awake and alert. No obvious cranial nerve deficits. Motor grossly within normal limits. Able to move all extremities spontaneously. Normal speech. PSYCHIATRIC: Appropriate mood and affect; insight and judgment normal. Results - Labs CBC & Chem 7: 09/12/18 04:30 09/12/18 04:30 Laboratory Results - last 24 hr 09/11/18 09/11/18 09/11/18 08:28 13:09 20:33 WBC RBC Hgb Hct MCV MCH MCHC RDW Plt Count MPV Neut % (Auto) Lymph % (Auto) [place] % (Auto) Eos % (Auto) Baso % (Auto) Neut # (Auto) Lymph # (Auto) [place] # (Auto) Eos # (Auto) Baso # (Auto) WBC Differential Differential Comment Sodium Potassium Chloride Carbon Dioxide Anion Gap BUN Creatinine Estimated GFR POC Glucose 97 140 H Random Glucose Calcium Total Bilirubin AST ALT Alkaline Phosphatase Total Protein Albumin Blood Type A Positive Antibody Screen Negative 09/12/18 09/12/18 09/12/18 02:34 04:30 04:30 WBC 11.6 H RBC 4.08 L Hgb 12.2 L Hct 37.0 L MCV 90.7 MCH 30.0 MCHC 33.1 RDW 14.3 Plt Count 199 MPV 9.0 Neut % (Auto) 79.8 H Lymph % (Auto) 11.1 [place] % (Auto) 8.1 H Eos % (Auto) 0.7 Baso % (Auto) 0.3 Neut # (Auto) 9.3 H Lymph # (Auto) 1.3 [place] # (Auto) 0.9 Eos # (Auto) 0.1 Baso # (Auto) 0.0 WBC Differential . Differential Comment Auto diff final Sodium 141 Potassium 4.6 Chloride 105 Carbon Dioxide 29.4 Anion Gap 7 BUN 21 H Creatinine 2.18 H Estimated GFR 30 L POC Glucose 84 Random Glucose 80 Calcium 7.9 L Total Bilirubin 0.6 AST 20 ALT 25 Alkaline Phosphatase 186 H Total Protein 6.5 Albumin 2.8 L Blood Type Antibody Screen 09/12/18 08:27 WBC RBC Hgb Hct MCV MCH MCHC RDW Plt Count MPV Neut % (Auto) Lymph % (Auto) [place] % (Auto) Eos % (Auto) Baso % (Auto) Neut # (Auto) Lymph # (Auto) [place] # (Auto) Eos # (Auto) Baso # (Auto) WBC Differential Differential Comment Sodium Potassium Chloride Carbon Dioxide Anion Gap BUN Creatinine Estimated GFR POC Glucose 71 Random Glucose Calcium Total Bilirubin AST ALT Alkaline Phosphatase Total Protein Albumin Blood Type Antibody Screen - Imaging Impressions Knee X-Ray 09/11/18 10:01 CONCLUSION: Expected postoperative changes status post arthroplasty. - Procedures Left total knee arthroplasty using [place] Triathlon prosthesis (uncemented) on 09/11/2018. Assessment and Plan - Plan 77-year-old male admitted secondary to elective left knee surgery Voiding difficulties Possible urinary obstruction Continue to try to urinate - patient reporting lower abd discomfort, sensation of fullness and small void volumes. Check PVR - place keller for PVR>300 start on Flomax 0.4mg daily Status post left knee arthroplastic surgery Osteoarthritis Ortho following Continue pain treatments as needed Physical therapy Follow H&H, stable Diabetes mellitus type 2 Follow blood sugars, BS well controlled Insulin sliding scale Diabetic diet Gout Continue allopurinol Chronic kidney disease stage III creatinine appears to be at baseline Follow renal function Avoid nephrotoxins Hypertension Continue baseline treatment Follow blood pressures Adjust treatments as needed Hiatal hernia History of renal calculi Presbycusis Follow these conditions clinically DVT prophylaxis Per discretion of surgeon Discussed Condition With: patient, nursing staff, Dr. Gomez
[2018-09-12] MEDS: Vitamin B Complex/Vitamin C Tablet PO SCH (10:03)
[2018-09-12] MEDS: Insulin Detemir Inj 1,000 UNIT/10 ML Vial SQ SCH (20:36)
[2018-09-13] MEDS: Levothyroxine 88 MCG Tablet PO SCH (06:19)
[2018-09-13 06:45] LABS: Hematocrit 35.3 % (39.0-51.0); Hemoglobin 11.7 gm/dL (13.0-17.0)
[2018-09-13] MEDS: Senna/Docusate Sodium 8.6/50 MG Tablet PO SCH ×2 (08:02→20:10)
[2018-09-13] MEDS: Pantoprazole Sodium 20 MG DR Tablet PO SCH (08:02)
[2018-09-13] MEDS: Metoprolol Tartrate 50 MG Tablet PO SCH ×2 (08:03→20:08)
[2018-09-13] MEDS: amLODIPine 5 MG Tablet PO SCH (08:03)
[2018-09-13] MEDS: Allopurinol 300 MG Tablet PO SCH (08:03)
[2018-09-13] MEDS: Aspirin 325 MG Tablet PO SCH (08:03)
[2018-09-13] MEDS: Vitamin B Complex/Vitamin C Tablet PO SCH (08:03)
--- NOTE | 2018-09-13 08:17 | P.PNOP ---
Subjective Interval history: Postop day #2 He is doing better today than he was yesterday yesterday he said his pain was a 10/10. Now he says that his pain is maximum 6/10. He is able to walk a little bit better. He has a conflict with going home because his son will not be home. He would like to wait another day. Physical therapy reports that the ambulation distance was 15 feet, twice, limited by vertigo and fatigue.. The range of motion was 0 degrees of extension to 92 degrees of flexion. Physical Exam Vital signs: Vital Signs 09/12/18 12:00 09/12/18 16:00 09/12/18 19:45 Temperature 97.7 F 99.1 F 99.3 F Pulse Rate 78 89 97 H Respiratory Rate 18 18 18 Blood Pressure 153/68 H 124/56 L 132/68 Pulse Oximetry 100 97 96 09/12/18 23:40 09/13/18 05:11 Temperature 98.5 F 98.4 F Pulse Rate 89 85 Respiratory Rate 19 18 Blood Pressure 147/69 H 161/73 H Pulse Oximetry 96 96 Intake & Output 09/12/18 09/13/18 09/13/18 18:59 06:59 18:59 Intake Total 876 / 876 720 / 720 Output Total 490 / 490 275 / 275 Balance 386 / 386 445 / 445 Weight 132.5 kg Intake: Oral 876 / 876 720 / 720 Output: Urine 380 / 380 275 / 275 Wound Drainage 110 / 110 # 1 Left Lateral Knee Hemovac 110 / 110 Other: Date of Last Bowel Movement 09/11/18 09/11/18 # Bowel Movements 0 Narrative: When I arrived in the room, he was transferring from the bed to the chair. He was walking with a walker with slight difficulty. The dressing is dry and intact. His neurovascular status is intact. Results - Labs CBC & Chem 7: 09/13/18 04:54 09/12/18 04:30 Laboratory Results - last 24 hr 09/12/18 09/12/18 09/12/18 08:27 11:17 16:58 Hgb Hct POC Glucose 71 117 H 138 H 09/12/18 09/13/18 20:29 04:54 Hgb 11.7 L Hct 35.3 L POC Glucose 147 H - Procedures Left total knee arthroplasty using [place] Triathlon prosthesis (uncemented) on 09/11/2018. Assessment and Plan - Ortho Post Op Day # 2 - Problem List (1) Primary osteoarthritis of left knee Code(s): M17.12 - Unilateral primary osteoarthritis, left knee Status: Chronic (2) Status post total left knee replacement not using cement Code(s): Z96.652 - Presence of left artificial knee joint Status: Acute (3) Obesity, Class III, BMI 40-49.9 (morbid obesity) Code(s): E66.01 - Morbid (severe) obesity due to excess calories Status: Acute (4) Diabetes mellitus Code(s): E11.9 - Type 2 diabetes mellitus without complications Status: Acute - Assessment and Plan Condition: Good. Orthopedically stable. DVT prophylaxis: TEDs, aspirin, sequentials. Discharge plans: Home with home health care. An appointment was scheduled through the office. Prescriptions: Percocet 7.5/325; Patient is having significant pain caused by a total knee arthroplasty which will last more than 3 days. Trial of Tylenol has not helped. I believe that it is medically necessary to treat patients pain because it is affecting patients ability to participate in postoperative rehabilitation and perform activities of daily living in a comfortable and efficient manner.
[2018-09-13] MEDS: Insulin NovoLOG Aspart Correctional Sugar Inj SQ SCH ×4 (10:10→20:09)
--- NOTE | 2018-09-13 13:07 | P.PN ---
Subjective Interval history: Follow-up on patient status post elective left total knee replacement surgery. Patient seen and examined. Patient states he is doing better today. He reports pain is better controlled on the left knee. He states he did have some dizziness and lightheadedness when he got up to the chair earlier today but this has since resolved. He states he is urinating well. He denies any fever or chills. He denies any chest pain or shortness of breath. Physical Exam Vital signs: Vital Signs 09/12/18 16:00 09/12/18 19:45 09/12/18 23:40 Temperature 99.1 F 99.3 F 98.5 F Pulse Rate 89 97 H 89 Respiratory Rate 18 18 19 Blood Pressure 124/56 L 132/68 147/69 H Pulse Oximetry 97 96 96 09/13/18 05:11 09/13/18 08:00 Temperature 98.4 F 97.7 F Pulse Rate 85 72 Respiratory Rate 18 15 Blood Pressure 161/73 H 127/58 L Pulse Oximetry 96 94 L Intake & Output 09/12/18 09/13/18 09/13/18 18:59 06:59 18:59 Intake Total 876 / 876 720 / 720 Output Total 490 / 490 275 / 275 Balance 386 / 386 445 / 445 Weight 132.5 kg Intake: Oral 876 / 876 720 / 720 Output: Urine 380 / 380 275 / 275 Wound Drainage 110 / 110 # 1 Left Lateral Knee Hemovac 110 / 110 Other: Date of Last Bowel Movement 09/11/18 09/11/18 09/10/18 # Bowel Movements 0 Narrative: GENERAL: WDWN overweight male patient, INAD. Awake and alert. Appears comfortable sitting on side of bed. SKIN: Warm and dry. HEENT: Atraumatic. Normocephalic. Pupils equal and round. No scleral icterus. No injection or drainage. No nasal bleeding or discharge. Mucous membranes pink and moist. NECK: Trachea midline. CARDIOVASCULAR: Regular rate and rhythm. RESPIRATORY: No accessory muscle use. Clear to auscultation. Breath sounds equal bilaterally. GASTROINTESTINAL: Abdomen soft, nondistended. +discomfort to palpation over suprapubic area. Hypoactive BS. MUSCULOSKELETAL: Extremities without clubbing, cyanosis, or edema. s/p Left TKR , postop dressing in place, C/D/I. NV LLE distally. Appears to have good range of motion with knee currently bent at approximately 80 degrees. NEUROLOGICAL: Awake and alert. No obvious cranial nerve deficits. Motor grossly within normal limits. Able to move all extremities spontaneously. Normal speech. PSYCHIATRIC: Appropriate mood and affect; insight and judgment normal. Results - Labs CBC & Chem 7: 09/13/18 04:54 09/12/18 04:30 Laboratory Results - last 24 hr 09/12/18 09/12/18 09/13/18 16:58 20:29 04:54 Hgb 11.7 L Hct 35.3 L POC Glucose 138 H 147 H 09/13/18 09/13/18 08:37 12:00 Hgb Hct POC Glucose 128 H 171 H - Procedures Left total knee arthroplasty using [employer] Triathlon prosthesis (uncemented) on 09/11/2018. Assessment and Plan - Plan 77-year-old male admitted secondary to elective left knee surgery Voiding difficulties, improving Possible urinary obstruction low PVR 50cc started on Flomax 0.4mg daily, continue Status post left knee arthroplastic surgery Osteoarthritis Ortho following, plan for discharge tomorrow Continue pain treatments as needed Continue with Physical therapy Follow H&H, stable Diabetes mellitus type 2 Follow blood sugars, BS well controlled Insulin sliding scale Diabetic diet Gout Continue allopurinol Chronic kidney disease stage III creatinine appears to be at baseline Follow renal function Avoid nephrotoxins Hypertension Continue baseline treatment Follow blood pressures Adjust treatments as needed Hiatal hernia History of renal calculi Presbycusis Follow these conditions clinically DVT prophylaxis Per discretion of surgeon Discussed Condition With: patient, nursing staff, Dr. Gomez
[2018-09-14] MEDS: Levothyroxine 88 MCG Tablet PO SCH (05:03)
[2018-09-14 06:35] VITALS: RESP 18; TEMP 97.9
--- NOTE | 2018-09-14 06:56 | P.PNOP ---
Subjective Interval history: Postop day #3 He is doing well. He has no complaints while he is resting. If he moves the knee, it is painful. Physical therapy reports that the ambulation distance was 50 feet. The range of motion was 0 degrees of extension to 93 degrees of flexion. Physical Exam Vital signs: Vital Signs 09/13/18 08:00 09/13/18 12:00 09/13/18 16:00 Temperature 97.7 F 97.1 F L 97.3 F L Pulse Rate 72 73 96 H Respiratory Rate 15 16 16 Blood Pressure 127/58 L 112/67 159/70 H Pulse Oximetry 94 L 98 96 09/13/18 19:35 09/14/18 00:30 09/14/18 03:50 Temperature 98.7 F 98.3 F 97.9 F Pulse Rate 101 H 104 H 102 H Respiratory Rate 19 19 18 Blood Pressure 159/70 H 146/66 H 144/67 H Pulse Oximetry 95 96 94 L Intake & Output 09/13/18 09/13/18 09/14/18 06:59 18:59 06:59 Intake Total 720 / 720 830 / 830 780 / 780 Output Total 275 / 275 375 / 375 700 / 700 Balance 445 / 445 455 / 455 80 / 80 Weight 132.5 kg 129.8 kg Intake: Oral 720 / 720 830 / 830 780 / 780 Output: Urine 275 / 275 350 / 350 700 / 700 Wound Drainage # 1 Left Lateral Knee Hemovac Other: # Voids 6 # Incontinent Voids 1 Date of Last Bowel Movement 09/11/18 09/10/18 09/13/18 # Bowel Movements 0 1 Narrative: He is resting comfortably, supine in bed. The dressing is dry and intact. His neurovascular status is intact. Results - Labs CBC & Chem 7: 09/13/18 04:54 09/12/18 04:30 Laboratory Results - last 24 hr 09/13/18 09/13/18 09/13/18 08:37 12:00 17:08 POC Glucose 128 H 171 H 148 H 09/13/18 20:02 POC Glucose 225 H - Procedures Left total knee arthroplasty using [place] Triathlon prosthesis (uncemented) on 09/11/2018. Assessment and Plan - Ortho Post Op Day # 3 - Problem List (1) Primary osteoarthritis of left knee Code(s): M17.12 - Unilateral primary osteoarthritis, left knee Status: Chronic (2) Status post total left knee replacement not using cement Code(s): Z96.652 - Presence of left artificial knee joint Status: Acute (3) Obesity, Class III, BMI 40-49.9 (morbid obesity) Code(s): E66.01 - Morbid (severe) obesity due to excess calories Status: Acute (4) Diabetes mellitus Code(s): E11.9 - Type 2 diabetes mellitus without complications Status: Acute - Assessment and Plan Condition: Good. Orthopedically stable. DVT prophylaxis: TEDs, aspirin, sequentials. Discharge plans: Home with home health care. An appointment was scheduled through the office. Prescriptions: Percocet 7.5/325; Patient is having significant pain caused by a total knee arthroplasty which will last more than 3 days. Trial of Tylenol has not helped. I believe that it is medically necessary to treat patients pain because it is affecting patients ability to participate in postoperative rehabilitation and perform activities of daily living in a comfortable and efficient manner.
[2018-09-14] MEDS: Insulin NovoLOG Aspart Correctional Sugar Inj SQ SCH (07:48)
[2018-09-14 08:18] VITALS: BP 127/81; PULSE 94; O2SAT 91
[2018-09-14] MEDS: Aspirin 325 MG Tablet PO SCH (08:56)
[2018-09-14] MEDS: amLODIPine 5 MG Tablet PO SCH (08:56)
[2018-09-14] MEDS: Metoprolol Tartrate 50 MG Tablet PO SCH (08:56)
[2018-09-14] MEDS: Vitamin B Complex/Vitamin C Tablet PO SCH (08:56)
[2018-09-14] MEDS: Allopurinol 300 MG Tablet PO SCH (08:57)
[2018-09-14] MEDS: Senna/Docusate Sodium 8.6/50 MG Tablet PO SCH (08:57)
[2018-09-14] MEDS: Pantoprazole Sodium 20 MG DR Tablet PO SCH (08:57)
== END 2018-09-14 09:26 | disposition home health service (06) ==
LOC: HSDI 07:49 → N06 15:11
PROVIDERS: ADMIT Orthopaedic Surgery; ATTEND Orthopaedic Surgery